=== PATIENT | male | born 1970 | race Caucasian/White ===

== ENCOUNTER → 2020-08-21 | Outpatient (CLI) | payer OTHER ==
--- NOTE | 2020-08-22 10:48 | CARD ---
MR#: [id number] Date of Study: 08/21/2020 Ordering Physician: BHARAT FRYE, Referring Physician: BHARAT FRYE, Tech: Dariela Mendez [facility] APPROVED REPORT EXAM: Two-dimensional and M-mode echocardiogram with Doppler and color Doppler. Other Information Quality : Good INDICATION Chest Pain 2D DIMENSIONS RVDd3.3 (2.9-3.5cm)Left Atrium(2D)3.3 (1.6-4.0cm) IVSd1.1 (0.7-1.1cm)Aortic Root(2D)3.2 (2.0-3.7cm) LVDd5.4 (3.9-5.9cm)LVOT Diameter2.1 (1.8-2.4cm) PWd1.1 (0.7-1.1cm)LVDs3.8 (2.5-4.0cm) FS (%) 29.3 %SV77.5 ml LVEF(%)55.7 (>50%) Aortic Valve AoV Peak Darius.176.5cm/sAoV VTI32.2cm AO Peak GR.12.5mmHgLVOT Peak Darius.134.8cm/s AO Mean GR.6mmHgAVA (VMAX)2.71cm2 RACHEL (VTI)3.47kw5SU P 1/2 Ibll418hn Mitral Valve MV E Zzmqbzqg89.9cm/sMV DECEL GANV843jv MV A Qbouzvoy70.0cm/sE/A Ratio0.9 Tricuspid Valve TR P. Yysuyjrd855vh/sRAP UKZBQVAY2rpDe TR Peak Gr.74beQsVMLO09bcTr Pulmonary Vein S1 Gsfrhubn94.3cm/sD2 Lyaxhvrn46.8cm/s LEFT VENTRICLE The left ventricle is normal size. There is normal left ventricular wall thickness. The left ventricu lar systolic function is normal and the ejection fraction is within normal range. The Ejection Fracti on is 55-60%. There is normal LV segmental wall motion. Transmitral Doppler flow pattern is Grade I-a bnormal relaxation pattern. RIGHT VENTRICLE The right ventricle is normal size. The right ventricular systolic function is normal. ATRIA The left atrium size is normal. The right atrium size is normal. The interatrial septum is intact wit h no evidence for an atrial septal defect or patent foramen ovale as noted on 2-D or Doppler imaging. AORTIC VALVE The aortic valve is calcified but opens well. Doppler and Color Flow revealed trace aortic regurgitat ion. There is no significant aortic valvular stenosis. MITRAL VALVE The mitral valve is calcified but opens well. There is no evidence of mitral valve prolapse. There is no mitral valve stenosis. Doppler and Color-flow revealed trace to mild mitral regurgitation. TRICUSPID VALVE The tricuspid valve is normal in structure and function. Doppler and Color Flow revealed mild eccentr ic tricuspid regurgitation. The PA pressure was estimated at 33 mmHg. There is no tricuspid valve bushra nosis. PULMONIC VALVE The pulmonic valve is not well visualized. Doppler and Color Flow revealed mild pulmonic valvular reg urgitation. There is no pulmonic valvular stenosis. GREAT VESSELS The aortic root is normal in size. The ascending aorta is not well seen. The IVC is normal in size an d collapses >50% with inspiration. PERICARDIAL EFFUSION There is no evidence of significant pericardial effusion. Critical Notification Critical Value: No <Conclusion> The left ventricle is normal size. The left ventricular systolic function is normal and the ejection fraction is within normal range. The Ejection Fraction is 55-60%. There is normal LV segmental wall motion. Doppler and Color Flow revealed trace aortic regurgitation. There is no significant aortic valvular stenosis. Doppler and Color-flow revealed trace to mild mitral regurgitation. Doppler and Color Flow revealed mild eccentric tricuspid regurgitation. The PA pressure was estimated at 33 mmHg. Signed by : Primo Almaguer MD Electronically Approved : 08/22/2020 10:48:02
== END ==
LOC: ECHO 13:36
PROVIDERS: ATTEND Internal Medicine Cardiovascular Disease
DX: I08.8 Other rheumatic multiple valve diseases (principal)
CPT/HCPCS: 93306

== ENCOUNTER → 2020-08-21 | Outpatient (CLI) | payer OTHER ==
--- NOTE | 2020-08-21 12:53 | KCIC ---
EXAM: CT coronary artery calcium screening; radiologist over read. HISTORY: Family history of heart disease. TECHNIQUE: Computed tomographic images of the chest were obtained without contrast. Multiplanar refor matting was performed. *One or more of the following individualized dose reduction techniques were utilized for this examina tion: 1. Automated exposure control. 2. Adjustment of the mA and/or kV according to patient size. 3. Use of iterative reconstruction technique. COMPARISON: None. FINDINGS: The heart is normal in size. The aorta is normal in caliber. There is no lymphadenopathy. T here are few calcified granulomas. There is no pneumothorax, pleural effusion or infiltrate. There is no suspicious pulmonary nodule. There is no acute finding involving the upper abdomen or osseous str uctures. IMPRESSION: 1. Please refer to the separate report for the coronary calcium score. 2. No significant incidental thoracic finding. Electronically signed by: Neena Earl MD (08/21/2020 12:50 PM) [id number]
== END ==
LOC: KCIC CT 12:18 → EDUNIT# 12:30
PROVIDERS: ATTEND Internal Medicine Cardiovascular Disease
DX: Z13.6 Encounter for screening for cardiovascular disorders (principal); Z82.49 Family history of ischemic heart disease and other diseases of the circulatory system
CPT/HCPCS: 75571